=== PATIENT | male | born 1985 | race Caucasian/White ===

== ENCOUNTER 2021-07-18 19:59 | Emergency (ER) | payer MEDICAID, SELFPAY ==
[2021-07-18 20:00] VITALS: BP 134/79; PULSE 114; RESP 16; TEMP 36.5; O2SAT 95; BMI 40.6
--- NOTE | 2021-07-18 20:25 | CT_ITS ---
HISTORY: injury EXAMINATION: CT Abdomen And Pelvis W/ Contrast Injection TECHNIQUE: Helically acquired images were obtained of the abdomen and pelvis following IV contrast. A radiation dose optimization technique was used for this scan. IV Contrast dosage and agent: 100mL [id number]-370 Oral contrast: None. COMPARISON: Unenhanced CT abdomen and pelvis from 07/01/15 FINDINGS: LOWER CHEST: Lung bases with no acute findings. Visualized heart normal size. LIVER: Fatty infiltration of liver. Hazy, round low-attenuation lesion within medial segment left lobe of liver again noted, measuring up to 3 cm diameter. GALLBLADDER AND BILIARY TREE: No calcified gallstones identified. There is no pericholecystic edema. No significant biliary ductal dilation. KIDNEYS AND URETERS: Normal renal size. No concerning lesion. There is no perinephric inflammation or hydronephrosis. ADRENAL GLANDS: Non-enlarged. SPLEEN: Normal size without discrete mass. PANCREAS: No discrete mass or peripancreatic inflammation. BOWEL: Normal appendix posterior to cecum within right lower quadrant. No abnormal stomach or bowel distension. No focal inflammatory change observed. LYMPH NODES: No enlarged mesenteric or retroperitoneal lymph nodes. PERITONEUM: No free air or significant free fluid. No other fluid collection. VESSELS: Mild atherosclerosis. URINARY BLADDER: Unremarkable. REPRODUCTIVE ORGANS: No pelvic masses. ABDOMINAL WALL: No acute findings or significant hernia defect. BONES: Intact with no suspicious osseous lesion. CT/Abdomen/Pelvis W IV Cont ONLY IMPRESSION: 1. No significant injury or acute intra-abdominal abnormality. 2. Mild hepatic steatosis with low attenuation cyst versus focal fat or adenoma within left lobe of liver. Individualized dose optimization techniques were used for this CT. at 2144 Reported and signed by: Jose Light MD Electronically Signed: Jose Light MD at 21:43 EDT Tel , Service support ,
--- NOTE | 2021-07-18 20:28 | EDS_ITS ---
HPI History of Present Illness Chief Complaint: Chest Other Detail of Chief Complaint: Injury to right chest Informant: patient Narrative Narrative: Patient presents to the emergency department complaint of an injury to his right ribs. Patient states that he feels like he may have broken a rib. Patient states that he was dumpster diving to hide some of his belongings patient states that he landed against the edge of the dumpster with his right ribs. Patient states it hurts to take a breath. Patient states that he recently finished rehab and has been 90 days clean from narcotics. PFSH PFSH Home Medications clonidine HCl 0.1 mg PO QHS 07/18/21 [History Last Taken Unknown] hydroxyzine pamoate [Vistaril] 25 mg QHS 07/18/21 [History Last Taken Unknown] Allergy/AdvReac Type Severity Reaction Status Date / Time No Known Allergies Allergy Verified 07/18/21 20:00 Social History Smoking Status: Current every day smoker tobacco type: cigarettes ROS ROS ED Constitutional Constitutional ED: Reports systems reviewed and no addt'l complaints, except as documented; Denies body ache(s), change in weight or chills Eyes Eyes: Denies acute decrease in peripheral vision, change in vision, double vision or loss of vision ENT ENT ED: Reports none; Denies ear pain, lip swelling, loss taste/smell, neck pain, otalgia or sore throat Cardiovascular Cardiovascular: Reports none and chest pain; Denies abdominal pain, chest pain with activity, leg edema, lightheadedness, palpitations, rapid heart rate or syncope Respiratory/Chest Respiratory/Chest: Reports none; Denies change in mental status, dry cough, dyspnea, hemoptysis, shortness of breath at rest or shortness of breath with exertion Gastrointestinal Gastrointestinal: Reports none and abdominal pain; Denies change in stool character, diarrhea, hematemesis, hematochezia, melena, rectal bleeding or vomiting Genitourinary Genitourinary ED: Reports none; Denies abdominal discomfort, anuria, dysuria, genital pain or polyuria Musculoskeletal Musculoskeletal: Reports none; Denies arthralgias, back pain, difficulty walking, extremity pain, muscle weakness or myalgias Integumentary Reports none; Denies abscess or rash Neurologic Neurologic: Reports none; Denies abnormal gait, confusion, focal weakness, frequent falls, headache(s), loss of vision, numbness, paresthesias, radicular pain, vertigo or weakness Psychiatric Psychiatric: Reports systems reviewed and no addt'l complaints, except as documented and none; Denies behavioral changes, confusion, difficulty concentrating, hallucinations, suicidal ideation, tactile hallucinations or visual hallucinations Endocrine Endocrinology: Denies none, cold intolerance, excessive sweating, fatigue or heat intolerance Hematologic/Lymphatic Hematologic/Lymphatic: Reports none; Denies anemia, easy bleeding or easy bruising Allergic/Immunologic Allergic/Immunologic ED: Denies as per HPI, none, lip swelling, mouth swelling, throat swelling, tongue swelling or hives EXAM Physical Exam Const Vital Signs: 07/18/21 20:00 07/18/21 21:59 Temperature 97.7 F L Temperature Source Temporal Pulse Rate 114 H 110 H Respiratory Rate 16 19 H Blood Pressure 134/79 H 132/92 H Blood Pressure Mean 97 Pulse Ox 95 97 Oxygen Delivery Method Room Air Positive well nourished and well developed General Appearance ED: well developed and NAD HEENT Reports TM's clear and moist mucous membranes normocephalic and atraumatic; Negative for trauma or tenderness Tympanic Membrane ED: Yes TM's clear Eyes PERRL and EOMs intact bilaterally General Eye ED: Negative for pale conjunctiva or scleral icterus Neck no lymphadenopathy, supple and no JVD General: Negative for tenderness Chest Wall inspection of chest normal and palpation of chest normal Chest Narrative: Patient has tenderness palpation over the right lower anterior chest wall that reproduces his pain. There is no crepitus or subcu emphysema. There is no ecchymosis or bruising noted. Chest: Negative for tenderness Resp normal respiratory effort and clear to auscultation bilaterally Effort and Inspection: Negative for respiratory distress or pain with movement Auscultation: Negative for rhonchi, wheezes or diminished lung sounds Cardio regular rate, regular rhythm, S1 normal heart sound, S2 normal heart sound and no murmurs Peripheral Pulses: pulses 2+ throughout GI normal to inspection, nondistended, normoactive bowel sounds, soft to palpation, non-tender, non-distended and no masses GI Narrative: Patient has tenderness palpation of the right upper quadrant with some guarding. No rebound, rigidity, or peritoneal signs. Back/Spine no CVA tenderness and no thoracic nor lumbar tenderness Extremity normal to inspection General Extremety ED: Negative for edema General Extremity: Negative for edema Neuro oriented x3, CN's II-XII intact bilaterally, no sensory deficits noted and gait normal Sensorium / Orientation: awake, alert, oriented to person, oriented to place and oriented to time Motor Exam: strength 5/5 throughout and strength abnormal Psych mental status grossly normal Skin no rashes or lesions noted and no wounds MDM MDM MDM Narrative Medical decision making narrative: Patient's work-up unremarkable in the emergency department. No evidence of rib fracture on x-ray. There is no pneumothorax. CT scan of the abdomen pelvis with IV contrast was unremarkable. I did give patient Tylenol here. I do not feel narcotics are indicated given that patient has history of narcotic abuse. Patient advised to follow-up with his primary care physician as he is from the [facility]. Patient was not happy that he did not receive something stronger for pain. Patient was offered Toradol and an anti-inflammatory for home which he refused because he states that does nothing for him and he is already on an anti-inflammatory. Patient wants me to give him a narcotic here for pain so that he does not go out on the street and use again. Lab Data Attestation: I reviewed the patient's lab results. Labs: Laboratory Results - last 24 hr 07/18/21 07/18/21 20:22 20:22 WBC 10.6 RBC 4.76 Hgb 14.6 Hct 43.7 MCV 91.8 MCH 30.7 MCHC 33.4 RDW Std Deviation 49.7 H RDW Coeff of Isabell 14.6 Plt Count 160 MPV 10.7 Immature Gran % (Auto) 0.100 Neut % (Auto) 60.0 Lymph % (Auto) 29.4 [place] % (Auto) 8.5 Eos % (Auto) 1.7 Baso % (Auto) 0.3 Absolute Neuts (auto) 6.4 Absolute Lymphs (auto) 3.12 Nucleated RBC % 0 Total Bilirubin 1.00 Direct Bilirubin 0.10 AST 98 H ALT 49 Alkaline Phosphatase 90 Total Protein 9.2 H Albumin 3.8 Globulin 5.4 H Radiography Diagnostic Testing: Radiology Impression Abdomen/Pelvis CT 07/18/21 20:25 IMPRESSION: 1. No significant injury or acute intra-abdominal abnormality. 2. Mild hepatic steatosis with low attenuation cyst versus focal fat or adenoma within left lobe of liver. Individualized dose optimization techniques were used for this CT. at 2144 Reported and signed by: Jose Light MD Electronically Signed: Jose Light MD at 21:43 EDT Tel , Service support , Ribs w/Chest X-Ray 07/18/21 20:42 IMPRESSION: Negative chest and right ribs. at 2135 Reported and signed by: Jose Light MD Electronically Signed: Jose Light MD at 21:33 EDT Tel , Service support , Discharge Plan Triage Chief Complaint: Chest Other ED Provider: Wolf Bardales Dx/Rx/DC Orders Clinical Impression: Chest wall contusion Instructions: ED Chest Wall Contusion Prescriptions: No Action clonidine HCl 0.1 mg Tablet 0.1 mg PO QHS RF: 0 hydroxyzine pamoate [Vistaril] 25 mg Capsule 25 mg QHS RF: 0 Primary Care Provider: Care Physician,No Primary Referrals: Care Physician,No Primary [Primary Care Provider] - Activity Restrictions/Additional Instructions: See your for doctor in 5 to 7 days. Disposition Disposition: Home, Self Care Discharge Date/Time: 07/18/21 22:32
[2021-07-18] MEDS: Acetaminophen 325 MG Tablet 650 MG PO (20:38)
[2021-07-18 20:41] LABS: Absolute Lymphocyte Count 3.12 X10^3/uL (0.83-4.51); Absolute Neutrophil Count 6.4 X10^3/uL (2.0-7.7); Basophil# 0.03 X10^3/uL; Basophil% 0.3 % (0-1); Eosinophil# 0.18 X10^3/uL; Eosinophils% 1.7 % (0-5); Hematocrit 43.7 % (40-54); Hemoglobin 14.6 g/dL (13.0-16.5); Lymphocyte # 3.12 X10^3/ul (0.83-4.51); Lymphocyte % 29.4 % (19-41); Mean Corp Hgb Conc 33.4 g/dL (32-36); Mean Corpuscular Hgb 30.7 pg (27.0-32.0); Mean Corpuscular Volume 91.8 fL (80-94); Mean Platelet Vol. 10.7 fl (6.2-12.0); Monocyte% 8.5 % (0-10); NRBC Flagged by Analyzer 0 % (0-5); Neutrophil # 6.36 X10^3/uL (2.7-7.7); Platelet Count 160 K/mm3 (150-450); RBC Distribution Width CV 14.6 % (11.6-14.6); RBC Distribution Width SD 49.7 fl (35.1-43.9); Red Blood Count 4.76 M/mm3 (4.6-6.2); White Blood Count 10.6 K/mm3 (4.4-11.0)
[2021-07-18 20:42] LABS: POSITIVE COUNT NO; POSITIVE DIFFERENTIAL NO; POSITIVE MORPHOLOGY NO
--- NOTE | 2021-07-18 20:42 | RAD_ITS ---
HISTORY: injury EXAMINATION/TECHNIQUE: XR Ribs Unilateral W/ PA Chest Min 3 Views PA view of chest with frontal and oblique views right ribs. COMPARISON: None FINDINGS: LINES/DEVICES: None. LUNGS: No focal airspace consolidation. Superficial radiopaque foreign bodies overlying upper chest (pigtail olu). No pulmonary edema. No pleural effusion. No pneumothorax. MEDIASTINUM AND CARDIOVASCULAR STRUCTURES: Cardiac silhouette not enlarged. Central airways and mediastinal contour are unremarkable. BONES AND SOFT TISSUES: No acute findings. No displaced rib fracture demonstrated. RAD/Ribs Uni Min 3V w/PA Chest IMPRESSION: Negative chest and right ribs. at 2135 Reported and signed by: Jose Light MD Electronically Signed: Jose Light MD at 21:33 EDT Tel , Service support ,
[2021-07-18 21:10] LABS: AST(SGOT) 98 U/L (15-37); Alanine Aminotransfer ALT/SGPT 49 U/L (16-61); Albumin, Serum 3.8 g/dL (3.2-5.0); Alkaline Phosphatase 90 U/L (45-117); Globulin 5.4 g/dL (2.2-4.2); Protein, Total 9.2 g/dL (6.4-8.2)
[2021-07-18 21:59] VITALS: BP 132/92; PULSE 110; RESP 17; RESP 19; O2SAT 97
--- NOTE | 2021-07-18 22:15 | ED.RN ---
patient on phone with fe=dane and says he does not appreciate the way we are treating him and thinks it is because he is an ex drug user. Explained that his results were all negative and we do not want to give him more than tylenol because he is 90 days clean and not worth it. He declined to talk to the doctor again, stating he just talked to him. Told him another option is to seek a second opinion at another er. Patient up and walking to door for urinal that was on bed. Handed to patient and assisted to wheelchair for transport to waiting room.
--- NOTE | 2021-07-18 22:22 | ED.RN ---
Patient walked to wheelchair and carried bag. loaded up his stuff and he asked if he called [facility] , if they would take him to the other ER. He has a ride coming and encouraged him to have them take him, if that is what he wants to try, as that will save him the cost of transport. HE states he wants to file a complaint. Gave him the number for patient advocate. Patient in waiting room and on facetime with a female at this time.
--- NOTE | 2021-07-18 22:24 | ED.RN ---
Dr Bardales made aware patient still upset with care.
--- NOTE | 2021-07-18 22:26 | NURSING ---
Charge nurse is aware of patient request to file complaint. He is cussing and yelling now while a baby is getting checked in. Patient is awre doctor is aware and still encourage him to follow up with PCO/General Care Provider, Kathryn Ro, or can go to another ER and reminded him again the choice fo tylenol was to not jeapordize his sobriety and if the tests had come back with something positive, moire would have been given for pain. Apologized for his frustration and he apologized for hus behavior. Patient states just waiting in his ride. Cell phone in his hand
== END 2021-07-18 22:32 | disposition home or self-care (01) ==
PROVIDERS: Emergency Provider Emergency Medicine
DX: S20.219A Contusion of unspecified front wall of thorax, initial encounter (principal); F17.210 Nicotine dependence, cigarettes, uncomplicated; X58.XXXA Exposure to other specified factors, initial encounter; Z79.899 Other long term (current) drug therapy
CPT/HCPCS: 71101; 74177; 80076; 85025; 99283; Q9967; A4216

== ENCOUNTER 2022-01-06 02:05 | Emergency (ER) | payer MEDICAID, SELFPAY ==
[2022-01-06 02:15] VITALS: BP 138/85; PULSE 85; RESP 15; TEMP 36.4; O2SAT 98; BMI 29.7
--- NOTE | 2022-01-06 02:17 | EX.ED.SAOD ---
HPI History of Present Illness Chief Complaint: Substance Abuse Informant: patient, EMS and police/intermediate project manager Narrative Narrative: 36-year-old male brought in by local police and EMS after he was found acting erratically in front of the [place]. He was also vomiting. Patient states he accidentally smoked wet and was having a reaction. He states he is homeless and currently living in the [facility]. States he does not feel well and is asking for help. Denies any other drug or alcohol use. No other specific complaints at this time. PFSH PFSH Home Medications NK 01/06/22 [History Last Taken Unknown] Allergy/AdvReac Type Severity Reaction Status Date / Time No Known Allergies Allergy Verified 07/18/21 20:00 Social History Smoking Status: Unknown if ever smoked ROS ROS ED Constitutional Constitutional ED: Denies chills or fever(s) Eyes Eyes: Denies change in vision Cardiovascular Cardiovascular: Denies chest pain Respiratory/Chest Respiratory/Chest: Denies dyspnea Gastrointestinal Gastrointestinal: Reports nausea and vomiting; Denies abdominal pain Musculoskeletal Musculoskeletal: Reports myalgias; Denies arthralgias Integumentary Denies rash Neurologic Neurologic: Denies headache(s) or weakness Psychiatric Psychiatric: Reports other Details: paranoia ; Denies anxiety, depression, suicidal ideation or suicidal thoughts EXAM Physical Exam Const Vital Signs: 01/06/22 02:15 Temperature 97.6 F L Temperature Source Temporal Pulse Rate 85 Respiratory Rate 15 Blood Pressure 138/85 H Blood Pressure Mean 102 Pulse Ox 98 Oxygen Delivery Method Room Air Positive well nourished and well developed General Appearance ED: well developed and NAD HEENT Reports moist mucous membranes atraumatic Eyes PERRL and EOMs intact bilaterally Neck supple Chest Wall inspection of chest normal Resp normal respiratory effort GI non-distended Extremity General Extremety ED: Negative for edema General Extremity: Negative for edema Neuro Neuro Narrative: Patient believes he is at [facility]. Patient appears intoxicated but does not have a focal neurologic deficit. Sensorium / Orientation: alert, oriented to person and confused; Negative for oriented to place or oriented to time Motor Exam: strength 5/5 throughout; Negative for general weakness Psych Negative for thought process normal Psych Narrative: Patient is sporadic movements and is paranoid but overall cooperative. Skin Lesions: no lesions Rashes: no rashes MDM MDM MDM Narrative Medical decision making narrative: Patient evaluated for drug intoxication and vomiting. He is given IV Ativan and Zofran. Overall he is cooperative in the ER but is bizarre. Does not seem to be a risk to himself or others. He is not given a sitter pink slip for these reasons. Patient went to give a urine sample and told the nurse that he needed to have a bowel movement as well. While he was in there apparently he had taken his clothes and there, changed back into a street clothes and then eloped from the emergency room. [place] police were contacted as patient still had an IV in. Patient is medically cleared and as he is cognizant enough to take his close him to the bathroom to change back into them and leaving the ER I do not think he requires further observation in the emergency room. Lab Data Attestation: I reviewed the patient's lab results. Labs: Laboratory Results - last 24 hr 01/06/22 01/06/22 01/06/22 02:25 02:25 02:25 WBC 4.9 RBC 4.43 L Hgb 13.4 Hct 37.9 L MCV 85.6 MCH 30.2 MCHC 35.4 RDW Std Deviation 41.7 RDW Coeff of Isabell 13.3 Plt Count 172 MPV 11.5 Immature Gran % (Auto) 0.200 Neut % (Auto) 37.1 L Lymph % (Auto) 53.0 H [place] % (Auto) 7.1 Eos % (Auto) 2.4 Baso % (Auto) 0.2 Absolute Neuts (auto) 1.8 L Absolute Lymphs (auto) 2.60 Nucleated RBC % 0 Sodium 139 Potassium 4.1 Chloride 105 Carbon Dioxide 32.0 Anion Gap 2 L BUN 10 Creatinine 0.86 Estim Creat Clear Calc 117.60 Est GFR (MDRD) Af Amer 129 Est GFR (MDRD) Non-Af 106 BUN/Creatinine Ratio 11.7 Glucose 88 Calcium 9.5 Total Bilirubin 0.40 AST 29 ALT 33 Alkaline Phosphatase 88 Total Creatine Kinase Total Protein 7.8 Albumin 3.2 Globulin 4.6 H Albumin/Globulin Ratio 0.7 L Ethyl Alcohol < 3.0 01/06/22 02:25 WBC RBC Hgb Hct MCV MCH MCHC RDW Std Deviation RDW Coeff of Isabell Plt Count MPV Immature Gran % (Auto) Neut % (Auto) Lymph % (Auto) [place] % (Auto) Eos % (Auto) Baso % (Auto) Absolute Neuts (auto) Absolute Lymphs (auto) Nucleated RBC % Sodium Potassium Chloride Carbon Dioxide Anion Gap BUN Creatinine Estim Creat Clear Calc Est GFR (MDRD) Af Amer Est GFR (MDRD) Non-Af BUN/Creatinine Ratio Glucose Calcium Total Bilirubin AST ALT Alkaline Phosphatase Total Creatine Kinase 134 Total Protein Albumin Globulin Albumin/Globulin Ratio Ethyl Alcohol Discharge Plan Triage Chief Complaint: Substance Abuse ED Provider: Shana Lockhart Dx/Rx/DC Orders Clinical Impression: Drug abuse, Vomiting, PCP (phencyclidine) abuse Instructions: ED Drug Abuse Prescriptions: No Action NK RF: 0 Primary Care Provider: Care Physician,No Primary Referrals: Care Physician,No Primary [Primary Care Provider] - Disposition Disposition: Elopement Discharge Date/Time: 01/06/22 04:08
[2022-01-06] MEDS: LORazepam 2 MG/ML Syringe 1 MG IV (02:28)
[2022-01-06] MEDS: Ondansetron 4 MG/2 ML Vial IV (02:28)
[2022-01-06 02:33] LABS: Absolute Neutrophil Count 1.8 X10^3/uL (2.0-7.7); Basophil# 0.01 X10^3/uL; Basophil% 0.2 % (0-1); Eosinophil# 0.12 X10^3/uL; Eosinophils% 2.4 % (0-5); Hematocrit 37.9 % (40-54); Hemoglobin 13.4 g/dL (13.0-16.5); Mean Corp Hgb Conc 35.4 g/dL (32-36); Mean Corpuscular Hgb 30.2 pg (27.0-32.0); Mean Corpuscular Volume 85.6 fL (80-94); Mean Platelet Vol. 11.5 fl (6.2-12.0); Monocyte# 0.35 X10^3/uL; Monocyte% 7.1 % (0-10); NRBC Flagged by Analyzer 0 % (0-5); Neutrophil # 1.82 X10^3/uL (2.7-7.7); Neutrophil % 37.1 % (47-70); POSITIVE MORPHOLOGY YES; Platelet Count 172 K/mm3 (150-450); RBC Distribution Width CV 13.3 % (11.6-14.6); RBC Distribution Width SD 41.7 fl (35.1-43.9); Red Blood Count 4.43 M/mm3 (4.6-6.2); White Blood Count 4.9 K/mm3 (4.4-11.0)
[2022-01-06 02:35] LABS: Differential Indicated SCAN CRITERIA MET
[2022-01-06 03:06] LABS: Alcohol, Blood (Medical)-Serum < 3.0 mg/dL
[2022-01-06 03:10] LABS: ALB/GLOB Ratio 0.7 RATIO (0.9-2.4); AST(SGOT) 29 U/L (15-37); Alanine Aminotransfer ALT/SGPT 33 U/L (16-61); Albumin, Serum 3.2 g/dL (3.2-5.0); Alkaline Phosphatase 88 U/L (45-117); Anion Gap 2 (5-15); BUN 10 mg/dL (7-18); BUN/Creat Ratio 11.7 RATIO (10-20); Calcium,Total 9.5 mg/dL (8.5-10.1); Chloride 105 mmol/L (98-107); Creatinine, Serum 0.86 mg/dL (0.70-1.30); EST Glomerular Filtration Rate 106 mL/min (>60); Est Glom Filt Rate - Afr Amer 129 mL/min (>60); Globulin 4.6 g/dL (2.2-4.2); Glucose 88 mg/dL (74-106); Potassium 4.1 mmol/L (3.5-5.1); Protein, Total 7.8 g/dL (6.4-8.2); Sodium Level 139 mmol/L (136-145)
[2022-01-06 03:13] LABS: CPK Total, Creatine Kinase 134 U/L (39-308)
--- NOTE | 2022-01-06 04:19 | ED.RN ---
ALERTED BY LAUREN GARCIA CHARGE NURSE THAT THE PT LEFT FROM THE BATHROOM. REVIEWED THE TAPE BY SECURITY AND FOUND THAT THE PT LEFT AT 0408.MD AWARE.POLICE NOTIFIED SINCE PT STILL HAD AN IV IN.PT WAS GOING TO BE DISCHARGE PER MD.
[2022-01-06 05:18] LABS: Amphetamine Urine VISTA POSITIVE (<1000 ng/mL); Barbiturate Urine VISTA NEGATIVE (< 200 ng/mL); Benzodiazepine Urine VISTA NEGATIVE (< 200 ng/mL); Cocaine Urine VISTA NEGATIVE (< 300 ng/mL); Ecstacy Urine VISTA POSITIVE (< 500 ng/mL); Methadone Urine VISTA NEGATIVE (< 300 ng/mL); PCP Urine VISTA NEGATIVE (< 25 ng/mL); THC Urine VISTA POSITIVE (< 50 ng/mL); Vista UDS pH Range 7
== END 2022-01-06 04:08 | disposition left against medical advice (07) ==
LOC: ED 02:19
PROVIDERS: Emergency Provider Emergency Medicine; Visit Provider Emergency Medicine
DX: F16.10 Hallucinogen abuse, uncomplicated (principal); R11.10 Vomiting, unspecified
CPT/HCPCS: 80053; 80307; 82077; 82550; 85025; 96374; 96375; 99284; A4216; J2405